=== PATIENT | male | born 1965 | race Caucasian/White ===

== ENCOUNTER 2019-02-03 09:45 | Emergency (ER) | payer MEDICARE, MEDICAID, SELFPAY ==
[2019-02-03 09:46] VITALS: BP 138/95; PULSE 103; RESP 17; TEMP 36.7; O2SAT 94; BMI 23.1
--- NOTE | 2019-02-03 10:01 | RAD_ITS ---
STUDY: X-RAY - RIGHT HAND REASON FOR EXAM: Male, 53 years old. Swelling. Limited examination due to patient's flexion of the fingers. TECHNIQUE: 3 view(s) of the hand. COMPARISON: None. FINDINGS: There is joint space narrowing of the radiocarpal articulation consistent with degenerative arthrosis. Normal distal radioulnar joint. Chondrocalcinosis of the triangular fibrocartilage. Small cystic changes of the carpal navicular bone. Normal carpal articulations There is degenerative arthrosis of the carpometacarpal (CMC) articulation of the thumb. Normal second through fifth carpometacarpal joints. Normal metacarpi. Normal metacarpophalangeal joint of the thumb. Normal interphalangeal joint of the thumb. Normal proximal and distal phalanges of the thumb. Normal metacarpophalangeal joints of the second through fifth fingers. Flexion deformity of the third fourth and fifth proximal interphalangeal joints. Normal phalanges of the second through fifth fingers. Soft tissue swelling. RAD/Hand Min 3 Views IMPRESSION: Soft tissue swelling. Degenerative changes. Electronically Signed: Fausto Babin, at 10:24 EDT , Service support ,
--- NOTE | 2019-02-03 10:01 | VDUE_ITS ---
Reason For Study: swelling Right Proximal Right jugular vein is spontaneous, widely patent, phasic, with no intraluminal echogenicity noted. Right subclavian vein is spontaneous, widely patent, phasic, with no intraluminal echogenicity noted. Right Lower Arm Right radial vein is compressible. Right ulnar vein is compressible. Right Arm Right axillary vein is spontaneous, patent, phasic, competent, compressible and demonstrates augmentation. Right brachial vein is compressible. Right cephalic vein is compressible. Right basilic vein is compressible. Prelim to Dr. Farr. Interpretation Summary No evidence for acute deep venous thrombosis[right] upper extremity with patent and compressible cephalic and basilic veins. Ordering Physician: Arvind Farr Performed By: Sven Larsen RVT ?
--- NOTE | 2019-02-03 10:03 | ED.DCSUM_ITS ---
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 Patient lives in a senior living because he cannot walk. He has had swelling of his right hand last 2 days. There is no known trauma. No known insect bite or sting. He denies any itching. He has never had this before. No history of any prior blood clots. Physical Examination: Middle-aged male in bed. To senior living personnel at bedside. Vital signs are stable and afebrile. HEENT exam unremarkable. Neck nontender. Lungs clear to auscultation bilaterally. Heart regular rate and rhythm rate about 95. No murmur. Abdomen is soft and nontender. Normal bowel sounds no peritoneal signs. Extremities he is exceedingly weak on the left side. Which is chronic from his traumatic brain injury. He can move his right arm. He has a brace on his left leg. But he has limited strength and dexterity on the right side. There is swelling of his right hand. It is not red or warm. There is no signs of any trauma or insect bite. Nontender. Palpable radial pulse. He has normal sensation. Neurologically is awake. He has a traumatic brain injury. Has speech difficulties. 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 Test Results: Right hand x-ray 3 views showed chronic degenerative arthritis but no acute fracture or injury. Also soft tissue swelling. Read both by the radiologist and myself. Venous duplex study right upper extremity was negative. No blood clot. As reported to me by the page technician. Emergency Department Course and Treatment: Patient has reportedly atraumatic right hand swelling. This may be dependent edema. It could be from trauma that is unknown or DVT of the upper extremity. X-ray and ultrasound be obtained. There is no signs of infection. Discussed test results with patient and senior living staff. Repeat exam unchanged. Treatment Plan: Ice and elevate hand. Motrin for pain and/or swelling. Follow-up as needed. Disposition: Discharge Impression: Acute right hand edema This note was generated with [employer] dictation software. It may contain incorrect words, spelling, and punctuation that were not noted in review of the chart prior to signing ED Disposition - Plan for ED Patient: Referrals: Speedy Russell MD [Primary Care Provider] -
--- NOTE | 2019-02-03 10:53 | ED.DEP ---
ED Disposition - Plan for ED Patient: Disposition: Home or Assisted Living Referrals: Speedy Russell MD [Primary Care Provider] - As Needed Additional Instructions: Ice and elevate right hand to decrease swelling. Motrin to decrease swelling. Follow-up if not improving or getting worse.
== END 2019-02-03 10:59 | disposition home or self-care (01) ==
PROVIDERS: Emergency Provider Emergency Medicine; Family Provider Family Medicine; PCP Family Medicine
DX: R60.9 Edema, unspecified (principal); M19.041 Primary osteoarthritis, right hand; Z87.820 Personal history of traumatic brain injury; Z93.2 Ileostomy status
CPT/HCPCS: 73130; 93971; 99282